=== PATIENT | male | born 1950 | race Caucasian/White ===

== ENCOUNTER 2018-02-08 07:07 | Observation (INO) | payer MEDICARE, BC ==
[2018-02-08 08:16] LABS: #Eosinphils 0.3 thou/uL (0.0-0.7); #Lymphocytes 0.2 thou/uL (1.20-3.40); #Monocytes 0.2 thou/uL (0.11-0.59); #Neutrophils 14.9 thou/uL (1.40-6.50); %Basophils 0.2 % (0.0-1.0); %Eosinophils 1.7 % (0.0-10.0); %Lymphocytes 1.1 % (21.0-51.0); %Monocytes 1.3 % (0.0-10.0); %Neutrophils 95.6 % (42.0-75.0); Hemoglobin 12.9 g/dL (14.0-18.0); Mean Corpuscular HGB CONC 31.7 g/dL (32.0-36.0); Mean Corpuscular Hemoglobin 30.2 pg (27.0-31.0); Mean Platelet Volume 7.2 fL (7.4-10.4); Platelet Count 178 thou/uL (130-400); RBC Distribution Width 14.1 % (11.5-14.5); Red Blood Cell (RBC) Count 4.29 mill/uL (4.70-6.10); White Blood Cell (WBC) Count 15.5 thou/uL (4.8-10.8)
[2018-02-08] MEDS ORDERED: Acetaminophen 500 MG TAB ONE (08:17)
[2018-02-08 08:54] LABS: Anion Gap 14 mmol/L (10-20); BUN (Urea Nitrogen) 21 mg/dL (8.4-25.7); Calc. Creatinine Clearance 0 mL/min (70-130); Calcium 8.4 mg/dL (7.8-10.44); Carbon Dioxide 18 mmol/L (23-31); Chloride 110 mmol/L (98-107); Estimated GFR-MDRD 67; Glucose 134 mg/dL (80-115); Potassium 3.6 mmol/L (3.5-5.1); Sodium 138 mmol/L (136-145)
--- NOTE | 2018-02-08 11:00 | PDOC.FPRHP ---
- History of Present Illness Chief Complaint: intractable vomiting last night History of Present Illness: 67 yo caucasion male w/ PMH of HTN and HLD presents for N/V/D. He ate at a Slovak buffet last night and 2 hours after eating started to experience severe nausea and vomiting that lasted for 4 hours. He had approximately 12 episodes of NBNB emesis. Last episode of emesis was at 3:30 this AM. Associated symptoms included chills, clamminess, and abdominal pain. He was seen in [place] ED and started on IVF. He was also given anti-emetics which helped resolve the vomiting. A CT scan was performed which was concerning for partial small bowel obstruction, so he was transferred over to [facility]. Re-evaluation at [facility] is less concerning for SBO. Patient also reports having several episodes of non-bloody diarrhea in the last several hours. reports that she also had belarusian food, but did not eat any rice. She is not exhibiting any symptoms. ED Course: GI cocktail given in ED in [place] which helped with sore throat from vomiting. -Has been getting 2L IV fluid boluses -Was given vanc and zosyn in outside ED x1 per outside ED records - Allergies/Adverse Reactions Allergies Allergy/AdvReac Type Severity Reaction Status Date / Time codeine Allergy Nausea Verified 02/08/18 11:23 - Home Medications Medication Instructions Recorded Confirmed Type Allopurinol 02/08/18 History Atorvastatin Calcium [Lipitor] 02/08/18 History Lisinopril 02/08/18 History - History PMHx: HTN, HLD, Hx atrial fib s/p ablation PSHx: 4 ablations on heart for A. fib FHx: Insignificant Social: Never smoker, Doesn't drink, No illicit drug use Full code - Review of Systems General: reports: fever/chills. denies: weight/appetite/sleep changes, night sweats, fatigue Eyes: denies: eye pain, vision changes, other ENT: denies: nasal congestion, rhinorrhea, other Respiratory: denies: cough, congestion, shortness of breath, exercise intolerance, other Cardiovascular: denies: chest pain, palpitation, paroxysmal nocturnal dyspnea, orthopnea, other Gastrointestinal: reports: nausea, vomiting, diarrhea, abdominal pain (had abdominal pain resolved currently). denies: constipation, GI bleeding Genitourinary: denies: incontinence, dysuria, polyuria, discharge Skin: denies: rashes, lesions, jaundice, itching Musculoskeletal: denies: pain, tenderness, stiffness, swelling, arthritis/ arthralgias Neurological: denies: numbness, syncope, seizure, weakness Psychological: denies: anxiety, depression - Vital signs BP: [123/61] HR: [96] RR: [18] Tmax: [100.6] Pox: [95]% on [RA] Wt: [106 kg] - Physical Exam Constitutional: NAD, awake, alert and oriented HEENT: normocephalic and atraumatic, PERRLA, MMM Neck: supple, FROM, trachea midline, no thyromegaly, no bruits Chest: no-tender to palpation, no lesions Heart: RRR, normal S1/S2, no murmurs/rubs/gallops, pulses present, no edema Lungs: CTAB, no respiratory distress, good air movement, no rales/rhonchi, no wheezing Abdomen: soft, non-tender, no masses/distention -Abdomen: Hyperactive bowel sounds Musculoskeletal: normal structure, normal tone Neurological: no focal deficit, normal sensation Skin: no rash/lesions, good turgor Heme/Lymphatic: no unusual bruising or bleeding, no purpura Psychiatric: normal mood and affect, good judgment and insight, intact recent and remote memory FMR H&P: Results - Labs Result Diagrams: 02/08/18 07:45 02/08/18 07:45 Lab results: WBC 15.5 thou/uL (4.8-10.8) H 02/08/18 07:45 Hgb 12.9 g/dL (14.0-18.0) L 02/08/18 07:45 Hct 40.8 % (42.0-52.0) L 02/08/18 07:45 MCV 95.0 fl (80.0-94.0) H 02/08/18 07:45 Plt Count 178 thou/uL (130-400) 02/08/18 07:45 Neutrophils % 95.6 % (42.0-75.0) H 02/08/18 07:45 Sodium 138 mmol/L (136-145) 02/08/18 07:45 Potassium 3.6 mmol/L (3.5-5.1) 02/08/18 07:45 Chloride 110 mmol/L (98-107) H 02/08/18 07:45 Carbon Dioxide 18 mmol/L (23-31) L 02/08/18 07:45 BUN 21 mg/dL (8.4-25.7) 02/08/18 07:45 Creatinine 1.09 mg/dL (0.6-1.3) 02/08/18 07:45 Glucose 134 mg/dL (80-115) H 02/08/18 07:45 Lactic Acid 2.1 mmol/L (0.5-2.2) 02/08/18 07:49 Calcium 8.4 mg/dL (7.8-10.44) 02/08/18 07:45 Additional comment: UA: neg Lipase: 22 CBC: WBC 22.4, Hg 13.7, Hct 41, Neutrophils 89% CMP: Na 141, K 4, Ch 104, CO2 25.6, Glucose 145, BUN 20, Cr 1.2 LA 2.6 PT 12, PTT 27.6, INR 1.09 FMR H&P: A/P - Problem List (1) Gastroenteritis Current Visit: Yes Status: Acute Code(s): K52.9 - NONINFECTIVE GASTROENTERITIS AND COLITIS, UNSPECIFIED (2) Gastroenteritis due to food toxin Current Visit: Yes Status: Acute Code(s): K52.1 - TOXIC GASTROENTERITIS AND COLITIS (3) Diarrhea Current Visit: Yes Status: Acute Code(s): R19.7 - DIARRHEA, UNSPECIFIED Qualifiers: Diarrhea type: infectious Qualified Code(s): A09 - Infectious gastroenteritis and colitis, unspecified (4) Dehydration Current Visit: Yes Status: Acute Code(s): E86.0 - DEHYDRATION (5) Hx of atrial fibrillation, no current medication Current Visit: Yes Status: Acute Code(s): Z86.79 - PERSONAL HISTORY OF OTHER DISEASES OF THE CIRCULATORY SYSTEM (6) Hypertension Current Visit: Yes Status: Acute Code(s): I10 - ESSENTIAL (PRIMARY) HYPERTENSION Qualifiers: Hypertension type: essential hypertension Qualified Code(s): I10 - Essential (primary) hypertension (7) Hyperlipidemia Current Visit: Yes Status: Chronic Code(s): E78.5 - HYPERLIPIDEMIA, UNSPECIFIED Qualifiers: Hyperlipidemia type: unspecified Qualified Code(s): E78.5 - Hyperlipidemia , unspecified - Plan 1. Gastroenteritis likely 2/2 food toxin - Likely 2/2 B. cereus from Slovak food consumption last night - Status post 2L IVF - Continue IVF @ 150 ml/hr - Observe for symptom improvement and resolution - No emesis since 3:30 AM - Continue zofran for N/V - Vanc and Zosyn in outside ED x1 2. Mild dehydration - S/p 2L IVF - Continue IVF @ 150 ml/hr 3. Mild KENZIE, resolved - s/p 2L IVF boluses - IVF @ 150 ml/hr - Cr 1.2 in outside ED, Cr 1.09 after repeat labs 4. Elevated lactic acid - Likely 2/2 dehydration - 2.6 in outside ED --> 2.1 - Repeat LA pending 5. Leukocytosis - Likely 2/2 to #1 - Improving - Monitor with AM CBC 6. Non-anion gap yyperchloremic metabolic acidosis - Likely 2/2 diarrhea and fluid repletion - Will start LR for IVF maintenance 7. HTN - Continue lisinopril 8. HLD - Continue atorvastatin 9. Hx of atrial fibrillation s/p ablation Code Status: Full DVT PPX: SCDs Disposition/LOS: Dispo: Patient stable. Anticipate <24 hour observation with discharge home tomorrow if tolerating PO. FMR H&P: Upper Level - Pertinent history 67 yo CM with PMHx A. fib s/p ablation x4, HTN, HLD presented to outside ED for vomiting and abd pain. Pt ate at a Slovak buffet for dinner with violent episodes of vomiting occurring 2 hours following the meal. 12-15 episodes vomiting that lasted for 4 hours until received multiple anti-emetics in ED. He ate many things on the buffet including white rice and a crab dish that tasted off. His did not eat rice and has no symptoms. CT scan could not rule out partial obstruction although had 2 episodes of diarrhea late last night and 2 episodes this AM. Per ED report, pt was felt to meet sepsis criteria (presumed fever and elevated WBC count) so given empiric Vancomycin, Zosyn, and IV fluids then transferred to [place]. - Pertinent findings PE: Gen: A&Ox4, NAD HEENT: MMM, erythematous pharynx CV: RRR, no m/r/g, cap refill <2 sec Lungs: CTAB Abd: NT/ND, BS+ Ext: no edema - Plan Date/Time: 02/08/18 1058 1. Acute gastroenteritis likely 2/2 food toxin. 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 Acute symptoms likely due to preformed toxin ingestion. No current indication for antibiotics as no other source of infection suspected. Dramatic improvement following IV hydration. Continue symptomatic mgmt with expected resolution by 24 hours. Already appears mostly back to baseline with no complaints. Observation likely overnight. 2. KENZIE, mild. Unknown baseline. Cr 1.2 -> 1.09 on repeat. Likely close to baseline. IV fluids and encourage PO hydration overnight. 3. Non-anion gap metabolic acidosis. Likely 2/2 dilutional acidosis from heavy volume expansion with NS, diarrhea. Likely offset mildly by loss of bicarb from vomiting. Repeat BMP in AM. Expect quick resolution. Will transition to LR for fluids. 4. Elevated lactate. 2.6 down to 2.1 on recheck after fluids. Resolved. 5. HTN. Home meds and monitor. 6. HLD. Home meds I, Mikhail Browne, have evaluated this patient and agree with findings/plan as outlined by post graduate intern resident. Pertinent changes/additions are listed here.
[2018-02-08] MEDS ORDERED: Acetaminophen 325 MG TAB PO PRN (13:10)
[2018-02-08] MEDS ORDERED: Ondansetron ODT 4 MG TAB PO PRN (13:10)
[2018-02-08] MEDS ORDERED: Lactated Ringer's 1,000 ML IV SCH (13:10)
[2018-02-08] MEDS ORDERED: Ondansetron HCl/PF 4 MG/2 ML Vial IVP PRN (13:10)
[2018-02-08 13:23] LABS: Lactic Acid 1.6 mmol/L (0.5-2.2)
[2018-02-08 13:38] VITALS: BMI 30.6
[2018-02-08 16:39] VITALS: BP 113/59; TEMP 100.7
--- NOTE | 2018-02-12 10:48 | DIS-2 ---
DATE OF ADMISSION: 02/08/2018 DATE OF DISCHARGE: 02/08/2018 ADMITTING ATTENDING: Donis Claros M.D. DISCHARGE ATTENDING: Donis Claros M.D. RESIDENT: Debbi Manley DO PROCEDURES: None. CONSULTATIONS: None. PRIMARY DIAGNOSES: 1. Gastroenteritis, likely secondary to food toxin. 2. Mild dehydration. 3. Mild acute kidney injury. SECONDARY DIAGNOSES: 1. Elevated lactic acid. 2. Leukocytosis. 3. Non-anion gap hyperchloremic metabolic acidosis. 4. Hypertension. 5. Hyperlipidemia. 6. History of atrial fibrillation, status post ablation. DISCHARGE MEDICATIONS: 1. Zofran 4 mg oral every 6 hours as needed. 2. Atorvastatin calcium 20 mg oral at bedtime. 3. Aspirin 81 mg oral daily. 4. Lisinopril 20 mg oral at bedtime. 5. Allopurinol 100 mg oral at bedtime. HISTORY OF PRESENT ILLNESS AND HOSPITAL COURSE: This is a 67-year-old male with past medical history of hypertension and hyperlipidemia, who presented with nausea, vomiting and diarrhea. He had eaten Arabic food the night prior to admission and started vomiting 2 hours after dinner. He said he experienced severe nausea and vomiting that lasted for approximately 4 hours. He had approximately 12 episodes of nonbilious, nonbloody emesis. The last episode had occurred at 3:30 in the morning of arrival to the emergency department, associated symptoms including chills, clamminess and abdominal pain. He was seen in [place] [facility], started on IV fluids. He was given 2 liters of IV fluid boluses and was given vancomycin and Zosyn in the outside emergency department. A CT scan was performed, which was concerning for partial small-bowel obstruction, which is why he was transferred over to [place]. Re-evaluation at [facility] was less concerning for small -bowel obstruction. The patient also reported having several episodes of nonbloody diarrhea in the last several hours and has been passing gas. Of note , reports that she also had Arabic food but did not eat any of the rice and she is not currently exhibiting any symptoms. The patient remained stable throughout the course of his hospital stay. Patient stayed for a period of less than 24 hours. After being given IV fluids and antiemetics, he was feeling much better. The patient only required mild fluid resuscitation. Prior to discharge, he was counseled that the diarrhea will continue to run its course, and he was sent home with Zoan for nausea and vomiting in the meantime. The patient was instructed to follow up with his primary care physician within a couple days from discharge to ensure resolution and improvement in his symptoms. DISPOSITION: Stable. DISCHARGE INSTRUCTIONS: 1. Location: Home. 2. Activities: No restrictions. 3. Diet: Heart healthy. 4. Followup: The patient is to follow up with his primary care physician within 7 days of discharge from the hospital to ensure resolution and improvement in symptoms. RYAN
== END 2018-02-08 19:12 | disposition home or self-care (01) ==
LOC: ERS 07:07 → 2SW 11:29
PROVIDERS: ADMIT Family Medicine; ATTEND Family Medicine
DX: K52.9 Noninfective gastroenteritis and colitis, unspecified (principal); N17.9 Acute kidney failure, unspecified; E87.2 Acidosis; E86.0 Dehydration; I10 Essential (primary) hypertension; E78.5 Hyperlipidemia, unspecified; I48.91 Unspecified atrial fibrillation; D72.829 Elevated white blood cell count, unspecified; Z79.899 Other long term (current) drug therapy; Z88.5 Allergy status to narcotic agent
CPT/HCPCS: 36415; 80048; 83605; 85025; 96360; 96361

== ENCOUNTER 2019-07-06 16:59 | Observation (INO) | payer MEDICARE, BC ==
[2019-07-06 17:46] LABS: Hemoglobin 12.7 g/dL (14.0-18.0); Mean Corpuscular HGB CONC 33.2 g/dL (32.0-36.0); Mean Corpuscular Hemoglobin 30.7 pg (27.0-31.0); Mean Corpuscular Volume 92.4 fL (78.0-98.0); Mean Platelet Volume 6.9 fL (7.4-10.4); Platelet Count 197 thou/uL (130-400); RBC Distribution Width 14.1 % (11.5-14.5); Red Blood Cell (RBC) Count 4.15 mill/uL (4.70-6.10); White Blood Cell (WBC) Count 18.7 thou/uL (4.8-10.8)
[2019-07-06 17:57] LABS: Bilirubin Negative (Negative); Blood, Urine 3+ (Negative); Clarity Turbid (Clear); Glucose, Urine (Dipstick) Normal (Negative); Leukocyte 500 Leu/uL (Negative); Nitrite Negative (Negative); Protein, Urine (Dipstick) 30 mg/dL (Neg-Trace); RBC/HPF Greater than 50 HPF (0-3); Squamous Epithelial 0-3 HPF (0-3); Urobilinogen Normal mg/dL (Less than 2); WBC/HPF Greater than 50 HPF (0-3)
[2019-07-06 18:03] LABS: Band 5 % (5-11); Eosinophils 5 % (0-10); Lymphocytes 3 % (21-51); MDiff Complete? YES; Metamyelocyte 1 % (0-0); Myelocyte 1 % (0-0); Neutrophil 85 % (42-75); Platelet Morphology Comment Appears Adequate; Polychromasia SLIGHT = 2-3 cells (100X) (0-2/hpf)
[2019-07-06 18:04] LABS: Bacteria/HPF 1+ HPF (None Seen)
[2019-07-06 18:05] LABS: Mucous/LPF 1+ LPF (<2+)
[2019-07-06 18:10] LABS: ALT (SGPT) 13 U/L (8-55); AST (SGOT) 19 U/L (5-34); Albumin 4.3 g/dL (3.4-4.8); Alkaline Phosphatase 97 U/L (40-150); Anion Gap 11 mmol/L (10-20); BUN (Urea Nitrogen) 19 mg/dL (8.4-25.7); Bilirubin, Total 0.6 mg/dL (0.2-1.2); Calc. Creatinine Clearance 0 mL/min (70-130); Calcium 9.9 mg/dL (7.8-10.44); Carbon Dioxide 26 mmol/L (23-31); Chloride 105 mmol/L (98-107); Estimated GFR-MDRD 35; Globulin 3.3 g/dL (2.4-3.5); Glucose 110 mg/dL (80-115); Potassium 4.1 mmol/L (3.5-5.1); Protein, Total 7.6 g/dL (5.8-8.1); Sodium 138 mmol/L (136-145)
--- NOTE | 2019-07-06 20:42 | CT ---
CT Stone Protocol: 07/06/2019 8:06 PM HISTORY: Left flank pain COMPARISON: None. TECHNIQUE: Multiple contiguous axial images were obtained and a CT of the abdomen and pelvis without IV contrast . Coronal and sagittal reformats were performed. FINDINGS: This examination is limited for the evaluation of solid organs and vascular structures due to the lac k of intravenous contrast. Lower Chest: within normal limits. Abdomen: Liver: Subcentimeter hypodensities in the liver are too small to definitely characterize but could po tentially represent cysts. Bile Ducts: Normal caliber. Gallbladder: Numerous calcified gallstones Pancreas: within normal limits. Spleen: within normal limits. Adrenals: within normal limits. Kidneys: Bilateral nonobstructing renal calcifications measuring up to 5 mm in size. 1.9 cm bilateral renal cysts. Pelvis: Reproductive Organs: No pelvic masses. Ureters: 3 to 4 mm calcification in the mid left ureter with mild left hydronephrosis Bladder: within normal limits. Bowel: Normal caliber. Mesenteric Lymph Nodes: No enlarged mesenteric lymph nodes. Peritoneum: No ascites or free air, no fluid collection. Vessels: Atherosclerotic calcifications in the aorta Retroperitoneum: within normal limits. Abdominal Wall: within normal limits. Bones: Degenerative changes in the spine. IMPRESSION: 1. Left ureteral calcic dictation with mild left hydronephrosis 2. Bilateral nonobstructing kidney stones 3. Renal cysts 4. Cholelithiasis
[2019-07-06] MEDS ORDERED: cefTRIAXone\\ROCEPHIN 1 GM VIAL ONE (21:47)
[2019-07-06] MEDS ORDERED: Ondansetron PF 4 MG/2 ML Vial ONE (22:01)
[2019-07-06] MEDS ORDERED: Morphine 4 MG/ML VIAL ONE (22:01)
[2019-07-06 22:57] VITALS: BMI 30.4
[2019-07-06] MEDS ORDERED: Ondansetron PF 4 MG/2 ML Vial IVP PRN (22:58)
[2019-07-06] MEDS ORDERED: Morphine 4 MG/ML VIAL SLOW IVP PRN (23:00)
[2019-07-06] MEDS: Sodium Chloride 0.9% 1,000 ML IV SCH (23:33)
[2019-07-07] MEDS: Sodium Chloride 0.9% 1,000 ML IV SCH (08:19)
[2019-07-07] MEDS ORDERED: Fentanyl 100 MCG/2 ML VIAL ONE ×2 (08:48→09:27)
[2019-07-07] MEDS ORDERED: Iothalamate Meglumine 60% 50 ML VIAL FS ONE (09:22)
[2019-07-07] MEDS ORDERED: Lidocaine 2% Jelly 5 ML TUBE ONE (09:27)
[2019-07-07] MEDS ORDERED: Ondansetron HCl/PF 4 MG/2 ML Vial IVP PRN ×2 (09:30→10:36)
[2019-07-07] MEDS ORDERED: Promethazine HCl 25 MG/ML VIAL SLOW IVP PRN ×2 (09:30→10:36)
[2019-07-07] MEDS ORDERED: Meperidine HCl/PF 25 MG/ML VIAL SLOW IVP PRN (09:30)
[2019-07-07] MEDS ORDERED: Promethazine HCl 25 MG/ML VIAL IM PRN ×2 (09:30→10:36)
[2019-07-07] MEDS ORDERED: B & O ONE (09:31)
[2019-07-07] MEDS ORDERED: Lidocaine 1% PF 5 ML VIAL ONE (10:10)
[2019-07-07] MEDS ORDERED: Ondansetron PF 4 MG/2 ML Vial ONE (10:10)
[2019-07-07] MEDS ORDERED: Dexamethasone 20 MG/5 ML VIAL ONE (10:10)
[2019-07-07] MEDS ORDERED: PROPOFOL 200 MG/20 ML VIAL ONE (10:10)
[2019-07-07] MEDS ORDERED: Acetaminophen 500 MG TAB PO PRN (12:00)
[2019-07-07] MEDS ORDERED: hydrALAZINE 20 MG/ML VIAL SLOW IVP PRN (12:00)
[2019-07-07] MEDS ORDERED: Ondansetron PF 4 MG/2 ML Vial IVP PRN (12:00)
[2019-07-07] MEDS ORDERED: Morphine 2 MG/ML SYRINGE SLOW IVP PRN (12:00)
[2019-07-07] MEDS ORDERED: Oxybutynin 5 MG TAB PO PRN (12:00)
[2019-07-07] MEDS ORDERED: Phenazopyridine HCl 97.5 MG TABLET PO PRN (12:00)
[2019-07-07] MEDS ORDERED: Bisacodyl 10 MG SUPP PR PRN (12:00)
[2019-07-07] MEDS ORDERED: diphenhydrAMINE 25 MG CAP PO PRN (12:00)
[2019-07-07] MEDS ORDERED: traMADol HCl 50 MG TAB PO PRN ×2 (12:02)
--- NOTE | 2019-07-07 13:31 | HP ---
REASON FOR ADMISSION: Kidney stone with intractable pain and acute kidney injury. CHIEF COMPLAINT: Left flank pain. HISTORY OF PRESENT ILLNESS: Mr. Chahal is a 68-year-old white male with history of nephrolithiasis, who presented with a 1-day history of severe left 10/10 flank pain. The pain was sharp with radiation towards the groin. He denied any fever, but did have nausea and vomiting. He presented to the emergency room with the severe left-sided flank pains and a CT stone protocol was performed given his history of stones, which demonstrated bilateral small nephrolithiasis and a left 3 to 4 mm midureteral stone with mild hydronephrosis. I was then asked to help evaluate the patient. Of note, his creatinine was elevated to approximately 1.9 above his baseline of normal. His serum white blood cell count was also elevated to 18,000, although he did not have any fevers. On my discussion with the patient, he has passed numerous stones in the past. He states that one of the stones that was captured came back as calcium oxalate. He has never required any kind of surgical procedures for his kidney stones. He denies any significant urinary complaints, hematuria, recurrent UTIs, or other voiding issues. ALLERGIES: CODEINE RESULTING IN NAUSEA. CURRENT HOME MEDICATIONS: 1. Lisinopril 10 mg p.o. daily. 2. Atorvastatin 10 mg p.o. daily. PAST MEDICAL HISTORY: 1. Atrial fibrillation. 2. Nephrolithiasis. 3. Hypertension. 4. Hyperlipidemia. PAST SURGICAL HISTORY: Cardiac ablation x4. SOCIAL HISTORY: The patient denies alcohol abuse. Denies illicit drug use. Does not smoke. He is and lives with his . FAMILY HISTORY: Noncontributory. REVIEW OF SYSTEMS: A 12-point review of systems was reviewed and found to be unremarkable other than what was commented on the HPI. Specifically, the flank pain and nausea. Remainder of 12-point review of systems was reviewed and otherwise negative. PHYSICAL EXAMINATION: VITAL SIGNS: Temperature 98, pulse 82, respirations 18, blood pressure 155/87, and saturation 96% on room air. GENERAL: Mildly uncomfortable. Stating that he is still having a lot of pain. He is otherwise conversant, appears stated age, well nourished, well developed, answering questions appropriately. HEENT: Normocephalic, atraumatic. Pupils are symmetric and round. Trachea midline. Moist mucous membranes. NECK: There is a benign skin growth on the left side of the patient's neck. CARDIOVASCULAR: Currently, regular rate and regular rhythm. Normal S1 and S2. Symmetric pulses. No obvious murmurs. CHEST: No increased work of breathing. Symmetric expansion. LUNGS: Clear to auscultation bilaterally. ABDOMEN: Soft, tender to palpation on the left, without rebound or guarding. Mild left CVA tenderness. No organomegaly. No hernias. Positive bowel sounds. GENITOURINARY: Nonfocal. Bilaterally descended testes. No lesions. RECTAL: Deferred at this time. EXTREMITIES: No clubbing, cyanosis, or edema. SKIN: Warm and dry. No rashes or lesions. Good turgor. MUSCULOSKELETAL: No joint deformities or joint erythema noted. Full range of motion. No inflammation in the hands. NEUROLOGIC: Cranial nerves II through XII grossly intact. No focal motor or sensory deficits identified. LYMPH NODES: There are no cervical, supraclavicular, axillary, or inguinal lymph nodes palpable. PSYCHIATRIC: Alert and oriented x3. Appropriate mood and affect. LABORATORY EVALUATION: The full set of labs are in the [facility] system, which I have reviewed. Of note, the patient's white blood cell count is 18.7 with hemoglobin 12.7. Creatinine 1.93. Urinalysis demonstrates 3+ blood, greater than 50 rbc's, greater than 50 wbc's, 1+ bacteria, no squamous cells. Blood cultures currently are negative. IMAGING DATA: CT from July [address] stone protocol demonstrates a 3-to 4-mm stone in the mid left ureter with mild hydronephrosis. There are additional small bilateral calculi with an approximately 3 mm left lower pole stone with a punctate stone and approximately 2-to 3-mm stone on the right x2. There is a renal cyst and cholelithiasis. With imaging, I have personally reviewed these images myself. ASSESSMENT: A 68-year-old white male with a left ureteral stone with acute kidney injury. Elevated white blood cell count, likely indicating early complicated urinary tract infection with a left ureteral stone. Given the circumstances, I would not recommend expectant management or medical expulsive therapy as the patient is at high risk for ongoing renal dysfunction and potentially becoming septic or developing pyelonephritis. As such, I have recommended left ureteral stent. Ureteroscopy is not appropriate in the setting if urinary tract infection cannot be excluded. I have discussed this all with the patient. I explained how ureteral stent is placed in the postoperative course. Risks of the procedure were discussed, which include, but are not limited to, bleeding, worsening infection, damage to the ureter, inability to pass the stent, damage to the urethra, bladder, or kidney, and need for further procedures such as a nephrostomy tube. He does understand that the ureteroscopy portion will be deferred to a later date and there will be some discomfort with the stent. I have also explained that it is critically important he does not fail to follow up and disappear with the ureteral stent in as this could result in long-term kidney damage, large stone formation, loss of kidney, or even . He states he will keep his followup appointments. After all discussion, he has agreed to proceed forward with cystoscopy with left ureteral stent placement. PLAN: 1. N.p.o. 2. Continue ceftriaxone 1000 mg IV daily. 3. To OR for cystoscopy with left ureteral stent placement. 4. Regular diet after procedure. 5. We will keep in hospital until urine culture finally results. 6. Continue home medications. 7. IV fluids. 8. Pain control, IV and oral. 9. Once culture results and we can transition to oral antibiotics, the patient can be discharged. We will plan for definitive ureteroscopy after completion of antibiotics at a future date. Job ID: [id number]
--- NOTE | 2019-07-07 13:37 | OP ---
DATE OF PROCEDURE: 07/07/2019 SERVICE: Urology. PREOPERATIVE DIAGNOSIS: Left ureteral stone. POSTOPERATIVE DIAGNOSES: Left ureteral stone and mild bulbar urethral stricture. INDICATIONS FOR PROCEDURE: Mr. Chahal is a 68-year-old white male, who initially presented to the ER with severe left flank pain. CT demonstrated a 3-to 4-mm mid ureteral stone on the left with acute kidney injury and elevated white count. I recommended ureteral stent placement. Risks and benefits have been discussed and he has agreed to proceed forward. DESCRIPTION OF PROCEDURE: After identification of armband and verification of consent, the patient was brought back to the operating room, where he underwent general anesthesia with an LMA. He was then placed in dorsal lithotomy position, prepped and draped in usual sterile fashion. After appropriate time-out, a lubricated 22-Maltese rigid cystoscope was introduced per urethra. There was a thin bulbar urethral stricture noted in the proximal bulbar urethra, which was able to be gently dilated with the beak of the cystoscope and then navigated into the prostate and then into the bladder. The prostate was mildly hypertrophic. The bladder mucosa was unremarkable other than some mild trabeculation. Both ureters in the orthotopic location. There were no other abnormalities noted. The left ureteral orifice was cannulated with a 0.035 Sensor wire up to the level of the renal pelvis. A 6 x 26 double-J stent was advanced over the Sensor wire up to the level of the kidney and then the wire removed leaving a good curl in the kidney and good curl in the bladder. The bladder was then emptied and cystoscope removed. A B and O suppository was placed in the patient's rectum. He was then taken out of positioning, awakened, and taken to PACU for recovery in stable condition. COMPLICATIONS: None. ESTIMATED BLOOD LOSS: Minimal. RETAINED TUBES AND DRAINS: A 6 x 26 double-J stent on the left. SPECIMENS: None. DISPOSITION: The patient will be kept in the hospital overnight until urine cultures are finalized, at which point, he can be discharged home on antibiotics with definitive stone surgery at a later date. Job ID: [id number]
[2019-07-07] MEDS: Atorvastatin Calcium 20 MG TAB PO SCH (20:30)
[2019-07-07] MEDS: Docusate 100 MG CAP PO SCH (20:30)
[2019-07-07] MEDS: Lisinopril 20 MG TAB PO SCH (20:31)
[2019-07-07] MEDS: cefTRIAXone\\ROCEPHIN 1 GM in Sodium Chloride 0.9% 100 ML IVPB SCH (21:13)
[2019-07-08 05:46] LABS: #Eosinphils 0.1 thou/uL (0.0-0.7); #Lymphocytes 0.8 thou/uL (1.20-3.40); #Monocytes 0.5 thou/uL (0.11-0.59); #Neutrophils 12.6 thou/uL (1.40-6.50); %Basophils 0.3 % (0.0-1.0); %Eosinophils 0.6 % (0.0-10.0); %Lymphocytes 5.4 % (21.0-51.0); %Monocytes 3.4 % (0.0-10.0); %Neutrophils 90.3 % (42.0-75.0); Mean Corpuscular HGB CONC 32.5 g/dL (32.0-36.0); Mean Corpuscular Hemoglobin 30.2 pg (27.0-31.0); Mean Corpuscular Volume 92.9 fL (78.0-98.0); Mean Platelet Volume 7.2 fL (7.4-10.4); Platelet Count 183 thou/uL (130-400); Red Blood Cell (RBC) Count 3.65 mill/uL (4.70-6.10); White Blood Cell (WBC) Count 13.9 thou/uL (4.8-10.8)
[2019-07-08 05:54] LABS: Anion Gap 10 mmol/L (10-20); BUN (Urea Nitrogen) 18 mg/dL (8.4-25.7); Calc. Creatinine Clearance 87 mL/min (70-130); Carbon Dioxide 24 mmol/L (23-31); Chloride 108 mmol/L (98-107); Estimated GFR-MDRD 62; Glucose 112 mg/dL (80-115); Potassium 4.3 mmol/L (3.5-5.1); Sodium 138 mmol/L (136-145)
[2019-07-08] MEDS: Docusate 100 MG CAP PO SCH ×2 (08:31→20:00)
[2019-07-08] MEDS ORDERED: Aspirin 81 mg Enteric Coated Tablet PO SCH (09:00)
[2019-07-08] MEDS ORDERED: Tamsulosin HCl 0.4 MG CAP PO SCH (09:00)
--- NOTE | 2019-07-08 09:23 | PRG ---
DATE OF SERVICE: 07/08/2019 SUBJECTIVE: The patient states he is feeling significantly better after ureteral stent placement. He is having mild urgency and frequency, but otherwise has no pain and is not taking any pain medication. Denies any fevers. OBJECTIVE: VITAL SIGNS: Temperature 97.6, pulse 54, respirations 20, blood pressure 139/81, and saturations 100% on room air. GENERAL: No apparent distress, communicative and alert. CARDIOVASCULAR: Regular rate and rhythm. ABDOMEN: Soft, nontender, and nondistended. Positive bowel sounds. GENITOURINARY: Unremarkable. EXTREMITIES: No clubbing, cyanosis, or edema. LABORATORY EVALUATION: The full set of labs are in the [facility] system, which I have reviewed. Of note, the patient's white count is down to 13.9. Creatinine is 1.17. ASSESSMENT AND PLAN: A 68-year-old white male with a left ureteral stone with acute kidney injury, possibly early pyelonephritis versus pyelitis without systemic symptoms with resolution of both what appears to be the infection and kidney injury with ureteral stent placement. His pain is also better. He still has ureteral stone, which will require definitive management at a later date. For now, we are awaiting cultures, which currently are proceeding, but are negative thus far for both blood and urine. If they do finalize negative, we will treat empirically with levofloxacin for a total of 7 days and then plan for ureteroscopy definitively afterwards. Job ID: [id number]
[2019-07-08 15:30] VITALS: TEMP 97.7
[2019-07-08] MEDS: Atorvastatin Calcium 20 MG TAB PO SCH (20:00)
[2019-07-08] MEDS: Lisinopril 20 MG TAB PO SCH (20:00)
[2019-07-08] MEDS: cefTRIAXone\\ROCEPHIN 1 GM in Sodium Chloride 0.9% 100 ML IVPB SCH (20:01)
[2019-07-08 20:02] VITALS: BP 146/77
--- NOTE | 2019-07-09 10:57 | DIS ---
DATE OF ADMISSION: 07/06/2019 DATE OF DISCHARGE: 07/08/2019 ADMITTING DIAGNOSIS: Left ureteral stone. DISCHARGE DIAGNOSIS: Left ureteral stone. PROCEDURE PERFORMED: Cystoscopy with left ureteral stent placement. BRIEF HISTORY: Mr. Chahal is a 68-year-old white male, who came to the ER with severe left flank pain. He had a 3-4 mm mid ureteral stone which was causing exquisite amount of pain. He had evidence of elevated white count and acute kidney injury. He elected to have to be admitted secondary to these factors. HOSPITAL COURSE: After the patient was admitted, he did get some relief with pain medication, although he continued to have significant amounts of pain. On hospital day 1, he was taken to the OR for cystoscopy and left stent placement. He felt much better after the stent placement and was put on IV antibiotics. His white blood cell count subsequently came down from 18,700 down to 13,900. His creatinine also improved to 1.93 down to 1.17. His culture finalized as negative. He was sent home on empiric levofloxacin for 7 days and will be scheduled to undergo ureteroscopy in approximately 1 week. DISPOSITION: Discharged to home. DISCHARGE CONDITION: Good. FOLLOWUP: Again in approximately 1 week for left-sided ureteroscopy and laser lithotripsy. DISCHARGE MEDICATIONS: 1. Levofloxacin 500 mg p.o. daily for 5 additional days. 2. Tramadol 50 mg p.o. q.6 hours p.r.n. pain. 3. Oxybutynin 5 mg p.o. t.i.d. p.r.n. bladder spasms. Job ID: [id number]
== END 2019-07-08 20:54 | disposition home or self-care (01) ==
LOC: ERS 16:59 → SURG A 22:46
PROVIDERS: ADMIT Urology; ATTEND Urology
PROC: 0T9780Z Drainage of Left Ureter with Drainage Device, Via Natural or Artificial Opening Endoscopic (ICD-10-PCS; principal; 2019-07-07)
DX: N20.1 Calculus of ureter (principal); N35.912 Unspecified bulbous urethral stricture, male; I10 Essential (primary) hypertension; E78.5 Hyperlipidemia, unspecified; Z79.899 Other long term (current) drug therapy; Z88.5 Allergy status to narcotic agent
CPT/HCPCS: 52332; 74176; 76000; 80048; 80053; 85025 ×2; 87040; 87086; 96361 ×2; 96365; 96366 ×2; 96375; 96376; 99285; C1758; C1769; G0378 ×4; 36415; 74420; 81003; 81015; J0696; J1100; J2001; J2270; J2405; J2704; J3010; J3490

== ENCOUNTER 2019-07-18 08:51 | Day surgery (SDC) | payer MEDICARE, BC ==
[2019-07-17 11:22] VITALS: BMI 30.5
--- NOTE | 2019-07-18 12:17 | RAD ---
TWO VIEW CHEST: History Preop. FINDINGS: Lungs are clear. Heart and mediastinum unremarkable. Osseous structures unremarkable. IMPRESSION: No acute finding. POS: H
[2019-07-18] MEDS ORDERED: cefTRIAXone\\ROCEPHIN 1 GM VIAL ONE (12:42)
[2019-07-18] MEDS ORDERED: Sodium Chloride 0.9% 100 ML ONE (12:42)
[2019-07-18] MEDS ORDERED: Iothalamate Meglumine 60% 50 ML VIAL FS ONE (13:25)
[2019-07-18] MEDS ORDERED: Fentanyl 100 MCG/2 ML VIAL ONE (13:47)
[2019-07-18] MEDS ORDERED: HYDROcodone/Acetaminophen 5/325 mg Tablet ONE (17:40)
[2019-07-18] MEDS ORDERED: Ondansetron ODT 4 MG TAB ONE (20:29)
--- NOTE | 2019-07-18 21:38 | OP ---
DATE OF PROCEDURE: 07/18/2019 SERVICE: Urology. PREOPERATIVE DIAGNOSIS: Left ureteral renal stones. POSTOPERATIVE DIAGNOSIS: Left ureteral renal stones. PROCEDURES PERFORMED: Left ureteroscopy, basket extraction of stone, placement of a 6 x 26 double-J stent. INDICATIONS FOR PROCEDURE: Mr. Chahal is a 68-year-old white male, who initially presented with intractable pain, acute kidney injury and elevated white count with a left ureteral stone. He underwent stenting at that time and he is now presenting for definitive stone management. Risks and benefits have been discussed and he has agreed to proceed forward. DESCRIPTION OF PROCEDURE: After identification of armband and verification of consent, the patient was brought back to the operating room and given general anesthesia with an LMA. He was placed in dorsal lithotomy position, prepped and draped in usual sterile fashion. After appropriate time-out, a lubricated 22-Divehi rigid cystoscope was introduced per urethra into the bladder. Attention was turned toward the left ureteral orifice from which there was a stent emanating. Flexible grasper was used to grasp the stent and bring it out to the level of the urethral meatus. A 0.035 Sensor wire was advanced through the stent up into the renal pelvis. The stent was then removed and discarded. A dual-lumen catheter was then advanced over the Sensor wire up to the level of the mid ureter. An Amplatz Super Stiff wire was then placed, passed to the second lumen up into the renal pelvis. The dual-lumen was then removed and an 11/13 x 36 cm ureteral access sheath was advanced over the Super Stiff wire up to the mid ureter. The inner cannula and the super Stiff wire were removed leaving the outer sheath and Sensor wire in place as a safety wire. A flexible digital ureteroscope was then passed through the ureteral access sheath up into the kidney. There were very small punctate stones found which were just knocked off the renal papilla to pass on their own. There were 2 additional stones, 1 measuring about 3 mm and another 2 mm that were still present. These were simply grasped with a 1.9-Divehi ZeroTip Nitinol basket and extracted. No additional stones were found within the kidney. In the ureter, the stone that previously had caused the patient the pain and acute kidney injury was found in the mid proximal type ureter. This was grasped with a basket and extracted. Upon further ureteroscopy, it was found that the Sensor wire was tunneled submucosally under a small portion of the ureter. This was pulled out and then reinserted via the ureteroscope back into the kidney to ensure that it was in the lumen of the ureter. The ureteroscope was then inserted alongside the Sensor wire through the ureteral access sheath and pull-back ureteroscopy employed keeping the Sensor wire in place as a safety wire. No additional stones or stone fragments were found within the ureter. The sheath and the ureteroscope were then removed leaving the Sensor wire in place. The cystoscope was then backloaded over the Sensor wire back into the bladder and a 6 x 26 double-J stent advanced over the Sensor wire into the kidney. The wire was removed leaving a good curl in the kidney and a good curl in the bladder. The bladder was then emptied. The cystoscope was removed. The patient was then awakened, taken to PACU for recovery in stable condition. COMPLICATIONS: None. ESTIMATED BLOOD LOSS: Minimal. RETAINED TUBES AND DRAINS: A 6 x 26 double-J stent on the left. SPECIMEN: Stone for stone analysis. DISPOSITION: The patient will be discharged home and follow up with me in 1 week for cysto stent removal. Job ID: [id number]
== END 2019-07-18 21:06 | disposition home or self-care (01) ==
LOC: SDC 08:51
PROVIDERS: ATTEND Urology
PROC: 0T9780Z Drainage of Left Ureter with Drainage Device, Via Natural or Artificial Opening Endoscopic (ICD-10-PCS; principal; 2019-07-18)
PROC: 0TC78ZZ Extirpation of Matter from Left Ureter, Via Natural or Artificial Opening Endoscopic (ICD-10-PCS; 2019-07-18)
DX: N20.2 Calculus of kidney with calculus of ureter (principal); N17.9 Acute kidney failure, unspecified; Z88.5 Allergy status to narcotic agent
CPT/HCPCS: 52332; 52352; 71046; 76000; 82365; 88300; C1769; J0696; J3010; J3490; Q0162

== ENCOUNTER 2019-07-19 11:52 | Emergency (ER) | payer MEDICARE, BC ==
[2019-07-19] MEDS ORDERED: Ondansetron PF 4 MG/2 ML Vial ONE ×2 (12:36→15:47)
[2019-07-19 12:45] LABS: #Basophils 0.2 thou/uL (0.0-0.2); #Eosinphils 0.6 thou/uL (0.0-0.7); #Lymphocytes 0.6 thou/uL (1.20-3.40); #Monocytes 0.4 thou/uL (0.11-0.59); %Eosinophils 3.1 % (0.0-10.0); Hemoglobin 12.2 g/dL (14.0-18.0); Mean Corpuscular HGB CONC 33.9 g/dL (32.0-36.0); Mean Corpuscular Hemoglobin 31.4 pg (27.0-31.0); Mean Corpuscular Volume 92.6 fL (78.0-98.0); Mean Platelet Volume 6.7 fL (7.4-10.4); Platelet Count 219 thou/uL (130-400); RBC Distribution Width 13.6 % (11.5-14.5); Red Blood Cell (RBC) Count 3.87 mill/uL (4.70-6.10); White Blood Cell (WBC) Count 18.7 thou/uL (4.8-10.8)
[2019-07-19 13:12] LABS: ALT (SGPT) 12 U/L (8-55); AST (SGOT) 19 U/L (5-34); Alkaline Phosphatase 92 U/L (40-150); Anion Gap 11 mmol/L (10-20); BUN (Urea Nitrogen) 12 mg/dL (8.4-25.7); Bilirubin, Total 0.6 mg/dL (0.2-1.2); Calc. Creatinine Clearance 0 mL/min (70-130); Calcium 9.6 mg/dL (7.8-10.44); Carbon Dioxide 25 mmol/L (23-31); Chloride 106 mmol/L (98-107); Estimated GFR-MDRD 62; Globulin 3.2 g/dL (2.4-3.5); Glucose 112 mg/dL (80-115); Potassium 4.3 mmol/L (3.5-5.1); Protein, Total 7.2 g/dL (5.8-8.1); Sodium 138 mmol/L (136-145)
[2019-07-19] MEDS ORDERED: Promethazine HCl 25 MG/ML VIAL ONE (16:18)
== END 2019-07-19 18:47 | disposition home or self-care (01) ==
LOC: ERS 11:52
DX: E86.0 Dehydration (principal); E78.5 Hyperlipidemia, unspecified; I48.91 Unspecified atrial fibrillation; Z79.899 Other long term (current) drug therapy
CPT/HCPCS: 80053; 85025; 96361; 96365; 96375; 96376; J2405; J2550

== ENCOUNTER 2019-09-04 12:39 | Outpatient (CLI) | payer MEDICARE, BC ==
--- NOTE | 2019-09-04 13:39 | ULT ---
Exam: Bilateral renal ultrasound HISTORY: Nephrolithiasis COMPARISON: None FINDINGS: Right kidney: Normal cortical echotexture. No hydronephrosis. Anechoic focus emanating from the lower pole the right kidney measuring 1.7 x 1.5 x 1.7 cm, compatible with a cyst. Anechoic focus in the upper pole of the right kidney measuring 2.4 x 1.8 x 2.4 cm, compatible with a cyst. Right kidney measurements: 11.6 x 4.9 x 5.1 cm. Left kidney: Normal cortical echotexture. No hydronephrosis. Anechoic focus emanating from the inferi or pole the left kidney measures 1.8 x 1.8 x 1.6 cm Left kidney measurements 12.1 x 4.9 x 4.9 cm. Urinary bladder: Normal mucosa. IMPRESSION: 1. No evidence of hydronephrosis 2. Bilateral renal cyst.
== END 2019-09-04 12:40 | disposition home or self-care (01) ==
LOC: BICULT 12:39
PROVIDERS: ATTEND Urology
DX: N20.0 Calculus of kidney (principal); N28.1 Cyst of kidney, acquired
CPT/HCPCS: 76770